=== PATIENT | male | born 1945 ===

== ENCOUNTER → 2018-09-15 | Outpatient (CLI) | payer MEDICARE, OTHER | LOC: LABPAT 09:33 | PROVIDERS: ATTEND Orthopaedic Surgery | DX: Z01.812 Encounter for preprocedural laboratory examination (principal); M16.11 Unilateral primary osteoarthritis, right hip | CPT/HCPCS: 87070 ==

== ENCOUNTER 2018-09-27 05:29 | Inpatient (IN) | payer MEDICARE, OTHER ==
--- NOTE | 2018-09-26 17:43 | HP ---
HISTORY AND PHYSICAL REASON FOR ADMISSION: Surgery scheduled for 09/27/2018 HISTORY OF PRESENT ILLNESS: Frances Easley is a 72-year-old patient seen with symptomatic right hip osteoarthritis. We discussed treatment options. She elected to proceed with right total hip arthroplasty. Consent was obtained. Preoperative medical clearance was provided by Dr. Alex Gallardo. PAST MEDICAL HISTORY: Hypothyroidism. PAST SURGICAL HISTORY: Cholecystectomy, hysterectomy, total knee arthroplasty. MEDICATIONS: Levothyroxine. ALLERGIES: None reported. SOCIAL HISTORY: She denies current tobacco use. PHYSICAL EXAMINATION: Evaluation of the right hip: There is very limited range of motion with severe pain. Positive hip impingement sign. Straight leg raise negative. Distal neurovascular exam is intact. RADIOGRAPHS: Radiographs of the right hip revealed moderate to severe osteoarthritic changes. IMPRESSION: 1. Right hip osteoarthritis. 2. Hypothyroidism. PLAN: Direct anterior right total hip arthroplasty. Surgery scheduled for 09/27/2018. MMODL / IJN: [id number] /
[~2018-09-27 05:29] MED LIST: ACETAMINOPHEN TAB 500 MG TAB PO ONE; MELOXICAM 7.5 MG TAB PO ONE; TRANEXAMIC ACID 1,000 MG in SODIUM CHLORIDE 0.9% 50 ML IVPB ONE; ceFAZolin IN SWFI 2 GM/20 ML SYRINGE IVP ONE
[2018-09-27] MEDS ORDERED: DEXAMETHASONE SOD PHOSPHATE 10 MG/ML 1 ML VIAL IV ONE (05:47)
[2018-09-27] MEDS ORDERED: MIDAZOLAM (PF) 2 MG/2 ML VIAL IV PRN (05:47)
[2018-09-27] MEDS ORDERED: LACTATED RINGERS 1,000 ML IV SCH (05:47)
[2018-09-27] MEDS ORDERED: LIDOCAINE 1% 20 ML VIAL (10MG/ML) FOR IV START INTRADERMA PRN (05:47)
[2018-09-27] MEDS ORDERED: ONDANSETRON 4 MG/2 ML VIAL IVP ONE (05:47)
[2018-09-27] MEDS ORDERED: HYDROmorphone 0.5 MG/0.5 ML SYRINGE IVP PRN ×4 (05:47→10:15)
[2018-09-27] MEDS ORDERED: SCOPOLAMINE 1.5MG/72HR PATCH TRANSDERM ONE (05:47)
[2018-09-27] MEDS ORDERED: WATER FOR INJECTION, STERILE 10 ML VIAL IV ONE (07:20)
[2018-09-27] MEDS ORDERED: TRANEXAMIC ACID 1,000 MG/10 ML VIAL ONE (07:20)
[2018-09-27] MEDS ORDERED: SODIUM CHLORIDE 0.9% 100 ML BAG ONE (07:20)
[2018-09-27] MEDS ORDERED: PROPOFOL 10 MG/ML 20 ML VIAL IV ONE (07:20)
[2018-09-27] MEDS ORDERED: MIDAZOLAM 2 MG/2 ML VIAL ONE (07:20)
[2018-09-27] MEDS ORDERED: ePHEDrine SULFATE/0.9% NACL/PF 50 MG/5 ML SYRINGE IV ONE (07:20)
[2018-09-27] MEDS ORDERED: ceFAZolin 3,000 MG in SODIUM CHLORIDE 0.9% IRRIGATIO 3,000 ML IRRIGATION ONE (07:23)
[2018-09-27] MEDS ORDERED: ROPIVACAINE 246.25 MG, EPINEPHrine 0.5 MG, KETOROLAC 30 MG, cloNIDine HCL/PF 80 MCG, WA... MISCELLANE ONE ×5 (07:59)
--- NOTE | 2018-09-27 09:27 | FL ---
EXAMINATION TYPE: FL guidance operating room, XR Hip Limited RT DATE OF EXAM: 09/27/2018 COMPARISON: NONE HISTORY: 72 year-old female right hip replacement FINDINGS: Intraoperative fluoroscopy during right hip total arthroplasty. FLUOROSCOPY Fluoroscopy time of 20 seconds was used during right hip arthroplasty. 1 image/s document/s the proc edure. IMPRESSION: Intraoperative fluoroscopy as above.
--- NOTE | 2018-09-27 09:29 | P.OP ---
Date of Procedure: 09/27/18 Preoperative Diagnosis: Right hip osteoarthritis Postoperative Diagnosis: Right hip osteoarthritis Procedure(s) Performed: Direct anterior right total hip arthroplasty Implants: 1. Depuy Corail KA size 11 standard collar press femoral stem 2. Depuy pinnacle 54 mm press-fit acetabular shell 3. Depuy pinnacle polyethylene acetabular liner neutral 36 mm ID 54 mm OD 4. Biolox delta ceramic femoral head +1.5 36 mm Anesthesia: local, spinal Surgeon: Brown Martins Sales Analyst #1: Nick Lloyd Estimated Blood Loss (ml): 125 Pathology: other (Femoral head) Condition: stable Disposition: PACU Indications for Procedure: 72-year-old patient seen with progressive symptomatic right hip osteoarthritis. After treatment options were discussed, she elected to proceed with direct anterior total hip arthroplasty Operative Findings: see description of procedure Description of Procedure: The patient was taken to the operative suite. Patient underwent a spinal anesthetic by the department of anesthesia. Patient was then transferred to the [place] table. Patient was given preoperative IV antibiotics and TXA. Both lower extremities were placed in standard leg spars. The hip was then prepped and draped in the normal sterile orthopedic fashion. A standard anterior incision was made beginning 3 cm lateral and 1 cm distal to the ASIS extending 10 cm. Dissection was then carried down through the subcutaneous soft tissues down to the fascia overlying the tensor fascia lauren. An incision was now made through the fascia. Careful dissection was taken down exposing the tensor fascia lauren muscle. A Cobra retractor was now placed along the medial femoral neck and a second one along the lateral femoral neck. The venous circumflex vessels were now identified, cauterized and clipped. We identified the anterior hip capsule. An incision was made through the hip capsule along the lateral border. I performed a partial anterior capsulectomy. Retractors were now placed around the femoral neck itself. A femoral neck cut was now made with a sagittal saw. It was completed with an osteotome at the lateral neck area. The femoral head was now removed without difficulty. The extremity was now rotated to 45 of external rotation. It was locked in position. Residual labrum was now debrided out. Serial reaming was performed of the acetabulum while Marvin CORTES assisted holding an anterior retractor for exposure. Once we reached the appropriate size and a trial was position and fit nicely. The appropriate size was now chosen opened and made available. It was introduced into the acetabulum without difficulty. The C-arm/fluoroscopy was now brought into the operative field. We made sure we had a true AP pelvic view. We now under direct C-arm/fluoroscopy introduced into the acetabular component with appropriate version and inclination. I held the cup in appropriate position well Marvin CORTES used a mallet to seat the acetabular component. I noted the component to be well seated however didn't appear to be well fixated. After a few attempts I decided to proceed with screw fixation. We we achieved 4 good purchase screw fixation for the acetabular cup. The C-arm was pulled back. An appropriate liner was introduced and clicked into position. It was felt to be stable. At this point retractors were removed. The extremity was now placed into 120 external rotation with no traction. The leg was now dropped to the ground and adducted. Appropriate retractors were now positioned along the proximal femur. We also placed our femoral look into position. Additional capsular releasing was performed to gain access to the proximal femur. We now used a box osteotome. A canal finder was now utilized. Serial broaching was now performed with the assistance of Marvin CORTES tapping the broaches down with a mallet while held the broach in appropriate rotation and position. This was done until we reached the appropriate size with good overall rotational stability. Appropriate calcar planing was performed. A trial head/neck was placed into position. The hip was now reduced. The C-arm/ fluoroscopy was brought back into the operative field. A spot film was obtained of the nonoperative hip. A spot film was obtained of the trial components. Overlays were performed, we noted good overall alignment and positioning for determining leg length. The C-arm/fluoroscopy was pulled back. Retractors were repositioned and the hip was dislocated. The leg was again taken down to the ground and adducted. Appropriate retractors were repositioned as well as the femoral hook. All trial components were removed. The femoral implant was opened along with the femoral head. The femoral implant was introduced on the appropriate handle into our pre-broached area. I held the component position well Marvin CORTES used a mallet to seat the femoral component. The femoral component was now noted to be well seated and stable.. The femoral head was introduced with good positioning and fixation noted. Retractors were now removed. The hip was now reduced. There appeared be good positioning of the hip confirmed on intraoperative fluoroscopy. Spot films were obtained to document this. A second gram of TXA was given. The deep and superficial soft tissues were infiltrated with local analgesic. Bipolar cautery had been utilized intermittently through the procedure for hemostasis. The wound was irrigated copiously with pulse lavage mechanical irrigation. The fascia was repaired with Vicryl suture. The subcutaneous soft tissues were repaired in layers with Vicryl suture. The skin was approximated with pernio/Dermabond. Sterile dressings were applied. Patient was then awakened, transferred to a bed and taken to recovery in stable condition. Marvin CORTES assisted with the complex procedure.
[2018-09-27] MEDS ORDERED: LACTATED RINGERS 1,000 ML IV ONE ×2 (09:55)
[2018-09-27] MEDS ORDERED: HYDROcodone/APAP 7.5-325MG 1 EACH TAB PO PRN (10:15)
[2018-09-27] MEDS ORDERED: ONDANSETRON 4 MG/2 ML VIAL IVP PRN (10:15)
[2018-09-27] MEDS ORDERED: NALOXONE 0.4 MG/ML 1 ML VIAL IV PRN (10:15)
[2018-09-27] MEDS ORDERED: traMADol 50 MG TAB PO PRN (10:15)
[2018-09-27 11:22] VITALS: BMI 32.6
[2018-09-27] MEDS: HYDROcodone/APAP 7.5-325MG 1 EACH TAB PO PRN ×2 (13:06→19:43)
[2018-09-27] MEDS: LACTATED RINGERS 1,000 ML IV SCH (13:36)
--- NOTE | 2018-09-27 15:21 | P.CONS ---
History of Present Illness - Reason for Consult Consult date: 09/27/18 medical management Requesting physician: Brown Martins - Chief Complaint hip pain - History of Present Illness 72-year-old female with PMH of hypothyroidism presents to [facility] for elective total right hip replacement. Patient reports that the surgery well without complications. Patient was seen and examined this morning. No acute events overnight. Patient denies any hip pain at this time. She has no complaints at this time. She denies any chest pain, shortness of breath or palpitations. No nausea, vomiting, fever, cough, changes in urination or bowel habits. Patient's past medical history of hypothyroidism, takes Synthroid 112 g daily. Review of Systems All systems: negative Past Medical History Past Medical History: Osteoarthritis (OA), Pneumonia, Skin Disorder, Thyroid Disorder Additional Past Medical History / Comment(s): Hx Pneumonia as a child, recurrent skin rash, resolved at present. History of Any Multi-Drug Resistant Organisms: None Reported Past Surgical History: Adenoidectomy, Cholecystectomy, Hysterectomy, Joint Replacement, Tonsillectomy Additional Past Surgical History / Comment(s): Thyroidectomy, bilateral knee replacements. Additional Past Anesthesia/Blood Transfusion Reaction / Comm: "Long time to get legs moving after spinal many yrs ago." Past Psychological History: No Psychological Hx Reported Smoking Status: Former smoker Past Alcohol Use History: Occasional Additional Past Alcohol Use History / Comment(s): Quit smoking in 1983, smoked for 18 yrs, 2-3 PPD. Past Drug Use History: None Reported - Past Family History Daughter(s) Family Medical History: Cancer Additional Family Medical History / Comment(s): Thyroid cancer. Medications and Allergies Home Medications Medication Instructions Recorded Confirmed Type Ergocalciferol (Vitamin D2) 50,000 unit PO TH 09/19/18 09/27/18 History [Vitamin D2] Levothyroxine Sodium 112 mcg PO HS 09/19/18 09/27/18 History Naproxen 500 mg PO BID PRN 09/27/18 09/27/18 History Allergies Allergy/AdvReac Type Severity Reaction Status Date / Time No Known Allergies Allergy Verified 09/27/18 10:24 Physical Exam Vitals: Vital Signs Temp Pulse Resp BP Pulse Ox 09/27/18 14:00 16 09/27/18 10:25 80 16 103/52 96 09/27/18 10:10 75 16 120/60 96 09/27/18 09:55 80 16 106/60 96 09/27/18 09:40 97.2 F L 90 16 105/57 95 09/27/18 06:20 98.8 F 88 16 126/69 98 Intake and Output 09/27/18 09/27/18 09/27/18 06:59 14:59 22:59 Intake Total 200 876 Output Total 125 Balance 200 751 Intake: IV 200 876 Output: Estimated Blood Loss 125 Other: Voiding Method Toilet Weight 81 kg General: [non toxic], [no distress], [appears at stated age] Derm: [warm], [dry] Head: [atraumatic], [normocephalic], [symmetric] Eyes: [EOMI], [no lid lag], [anicteric sclera] Mouth: [no lip lesion], [mucus membranes moist] Cardiovascular: [S1S2 reg], [no murmur], [positive posterior tibial pulse bilateral], Lungs: [CTA bilateral], [no rhonchi, no rales] , [no accessory muscle use] Abdominal: [soft], [ nontender to palpation], [no guarding], [no appreciable organomegaly] Ext: [no gross muscle atrophy], [no edema], [no contractures], [surgical scar bilateral knees] Neuro: [no focal neuro deficits] Psych: [Alert], [oriented], [appropriate affect] Assessment and Plan Assessment: Assessment and Plan 1. Right ankle hip osteoarthritis status post total hip replacement 2. Hypothyroidism 1. Postop day 0 today. Pain management with [place] 7.5 one tab by mouth every 6 hours as needed for pain, Dilaudid IV as needed for severe pain. Weightbearing as per Ortho recommendations. Will follow PT and OT recommendations. 2. Stable. Resume Synthroid 112 mcg by mouth daily. Thank you for allowing us to participate in the care of this patient. Please feel free to call with additional questions. We'll continue to follow.
[2018-09-27] MEDS: ceFAZolin IN SWFI 2 GM/20 ML SYRINGE IVP SCH (16:49)
[2018-09-27] MEDS: SENNOSIDES-DOCUSATE SODIUM 1 EACH TAB PO SCH (21:53)
[2018-09-27] MEDS: LEVOTHYROXINE 112 MCG TAB PO SCH (21:53)
[2018-09-28] MEDS: ceFAZolin IN SWFI 2 GM/20 ML SYRINGE IVP SCH (00:15)
[2018-09-28] MEDS: LACTATED RINGERS 1,000 ML IV SCH ×2 (00:16→22:13)
[2018-09-28] MEDS: HYDROcodone/APAP 7.5-325MG 1 EACH TAB PO PRN ×4 (01:53→20:30)
[2018-09-28 07:32] LABS: Basophils % (A) 0 %; Eosinophils # (A) 0.1 k/uL (0-0.7); Eosinophils % (A) 1 %; HCT 32.4 % (34.0-46.0); HGB 10.4 gm/dL (11.4-16.0); Lymphocytes # (A) 1.5 k/uL (1.0-4.8); Lymphocytes % (A) 18 %; MCH 28.9 pg (25.0-35.0); MCHC 32.2 g/dL (31.0-37.0); MCV 89.7 fL (80.0-100.0); Mean Platelet Volume 6.6; Monocytes # (A) 0.5 k/uL (0-1.0); Monocytes % (A) 6 %; Neutrophils % (A) 74 %; Platelet Count 201 k/uL (150-450); RBC 3.61 m/uL (3.80-5.40); RDW 13.4 % (11.5-15.5); WBC 8.1 k/uL (3.8-10.6)
[2018-09-28] MEDS: FAMOTIDINE 20 MG TAB PO SCH (08:10)
[2018-09-28] MEDS: ENOXAPARIN 40 MG/0.4 ML SYRINGE SQ SCH (08:10)
[2018-09-28] MEDS ORDERED: HYDROmorphone 2 MG TAB PO PRN ×3 (11:31→11:32)
--- NOTE | 2018-09-28 12:33 | P.PN ---
Progress Note - Text Progress Note Date: 09/28/18 Patient seen laying in bed comfortably. She did ambulate with walker today but did have a difficult time with that. Physical therapy has recommended inpatient rehabilitation for this patient. Incision stable. Log[place] hip is without pain. Negative Pedro, negative Carlos. Impression: Status post direct anterior right total hip arthroplasty Plan: Physical therapy DVT prophylaxis Medical management Await rehab transfer
--- NOTE | 2018-09-28 16:21 | P.PN ---
Subjective Progress Note Date: 09/28/18 Principal diagnosis: Right hip arthroplasty Patient was seen and examined. No acute events overnight. Patient reports good control of her pain with [place], 7 out of 10 with ambulation. Patient complains of numbness along the lateral aspect of her right lower extremity. She also complains of stiffness in the right lower extremity, but this is being continued previous to her surgery. She was watched ambulating with physical therapy with the help of a rolling walker. Plans for [facility] on Monday or Monday. Objective - Vital Signs Vital signs: Vital Signs Temp 97.4 F L 09/28/18 15:39 Pulse 83 09/28/18 15:39 Resp 16 09/28/18 15:39 BP 104/67 09/28/18 15:39 Pulse Ox 94 L 09/28/18 15:39 Intake & Output 09/27/18 09/28/18 09/28/18 18:59 06:59 18:59 Intake Total 876 980 560 Output Total 125 Balance 751 980 560 Weight 81 kg Intake: IV 876 Intake, IV Titration 800 560 Amount Lactated Ringers 1,000 ml 800 560 @ 80 mls/hr IV .[id number] [facility] Rx#:[id number] Oral 180 Output: Estimated Blood Loss 125 Other: Voiding Method Toilet Toilet Toilet # Voids 2 - Exam General: [non toxic], [no distress], [appears at stated age] Derm: [warm], [dry] Head: [atraumatic], [normocephalic], [symmetric] Eyes: [EOMI], [no lid lag], [anicteric sclera] Mouth: [no lip lesion], [mucus membranes moist] Cardiovascular: [S1S2 reg], [no murmur], [positive DP pulse bilateral] Lungs: [CTA bilateral], [no rhonchi, no rales] , [no accessory muscle use] Abdominal: [soft], [ nontender to palpation], [no guarding], [no appreciable organomegaly] Ext: [no gross muscle atrophy], [no edema], [no contractures], [surgical scar bilateral knees], [right hip dressing is clean dry and intact], [decreased sensation to touch over the lateral aspect of the right thigh] Neuro: [no focal neuro deficits] Psych: [Alert], [oriented], [appropriate affect] - Labs CBC & Chem 7: 09/28/18 06:33 Labs: Abnormal Lab Results - Last 24 Hours (Table) 09/28/18 Range/Units 06:33 RBC 3.61 L (3.80-5.40) m/uL Hgb 10.4 L (11.4-16.0) gm/dL Hct 32.4 L (34.0-46.0) % Assessment and Plan Assessment: Assessment and Plan 1. Right ankle hip osteoarthritis status post total hip replacement 2. Hypothyroidism 1. Postop day 1 today. Pain management with [place] 7.5 one tab by mouth every 6 hours as needed for pain, Dilaudid IV as needed for severe pain. Weightbearing as per Ortho recommendations. Will follow PT and OT recommendations. Will talk to orthopedic surgery regarding her lateral thigh numbness and stiffness in her right lower extremity. 2. Stable. Resume Synthroid 112 mcg by mouth daily. Thank you for allowing us to participate in the care of this patient. Please feel free to call with additional questions. We'll continue to follow.
[2018-09-28] MEDS: SENNOSIDES-DOCUSATE SODIUM 1 EACH TAB PO SCH (20:30)
[2018-09-28] MEDS: LEVOTHYROXINE 112 MCG TAB PO SCH (21:22)
[2018-09-29] MEDS: LACTATED RINGERS 1,000 ML IV SCH ×2 (00:56→13:46)
[2018-09-29] MEDS: HYDROcodone/APAP 7.5-325MG 1 EACH TAB PO PRN ×3 (02:25→17:59)
[2018-09-29] MEDS: ENOXAPARIN 40 MG/0.4 ML SYRINGE SQ SCH (07:12)
[2018-09-29] MEDS: FAMOTIDINE 20 MG TAB PO SCH (07:12)
[2018-09-29 07:20] VITALS: RESP 16
--- NOTE | 2018-09-29 09:58 | P.PN ---
Subjective Progress Note Date: 09/29/18 Principal diagnosis: Status post right total hip arthroplasty Patient evaluated today bedside, she is resting comfortably. She notes having is in the leg. Pain controlled. She denies any chest pain or shortness of breath. Objective - Vital Signs Vital signs: Vital Signs Temp 98.0 F 09/29/18 07:19 Pulse 89 09/29/18 07:19 Resp 16 09/29/18 07:19 BP 94/59 09/29/18 07:19 Pulse Ox 96 09/29/18 07:19 Intake & Output 09/28/18 09/29/18 09/29/18 18:59 06:59 18:59 Intake Total 560 Balance 560 Intake: Intake, IV Titration 560 Amount Lactated Ringers 1,000 ml 560 @ 80 mls/hr IV .[id number] [facility] Rx#:[id number] Other: Voiding Method Toilet Toilet - Exam Right lower extremity: Incision is clean, dry, and intact. The ananda is in good condition. There is minimal soft tissue swelling and ecchymosis surrounding the medial and lateral aspects of the incision. Calf is soft, no tenderness with palpation. Plantar flexion, dorsiflexion, EHL, FHL are intact. Sensory exam to light touch throughout the extremity is intact, dorsal pedis pulses 2+. - Labs CBC & Chem 7: 09/28/18 06:33 Assessment and Plan Plan: Assessment: Postop day #2 status post right total hip arthroplasty Plan: Pain control, continue current medication GI and DVT prophylaxis, continue current medication Wound care Instructions discussed Medical recommendations Discharge planning: Patient will be discharged to rehab tomorrow
--- NOTE | 2018-09-29 11:50 | P.PN ---
Subjective Progress Note Date: 09/29/18 Principal diagnosis: Right hip pain Patient was seen and examined. No acute events overnight. Patient reports controlled pain in her right hip. She continues to complain of numbness on the lateral aspect of her right thigh. She denies any chest pain, shortness of breath or palpitations. Objective - Vital Signs Vital signs: Vital Signs Temp 98.0 F 09/29/18 07:19 Pulse 89 09/29/18 07:19 Resp 16 09/29/18 07:19 BP 94/59 09/29/18 07:19 Pulse Ox 96 09/29/18 07:19 Intake & Output 09/28/18 09/29/18 09/29/18 18:59 06:59 18:59 Intake Total 560 Balance 560 Intake: Intake, IV Titration 560 Amount Lactated Ringers 1,000 ml 560 @ 80 mls/hr IV .[id number] [facility] Rx#:[id number] Other: Voiding Method Toilet Toilet - Exam General: [non toxic], [no distress], [appears at stated age] Derm: [warm], [dry] Head: [atraumatic], [normocephalic], [symmetric] Eyes: [EOMI], [no lid lag], [anicteric sclera] Mouth: [no lip lesion], [mucus membranes moist] Cardiovascular: [S1S2 reg], [no murmur], [positive DP pulse bilateral] Lungs: [CTA bilateral], [no rhonchi, no rales] , [no accessory muscle use] Abdominal: [soft], [ nontender to palpation], [no guarding], [no appreciable organomegaly] Ext: [no gross muscle atrophy], [no edema], [no contractures], [surgical scar bilateral knees], [right hip dressing is clean dry and intact], [decreased sensation to touch over the lateral aspect of the right thigh] Neuro: [no focal neuro deficits] Psych: [Alert], [oriented], [appropriate affect] - Labs CBC & Chem 7: 09/28/18 06:33 Assessment and Plan Assessment: Assessment and Plan 1. Right ankle hip osteoarthritis status post total hip replacement 2. Hypothyroidism 1. Postop day 2 today. Pain management with [place] 7.5 one tab by mouth every 6 hours as needed for pain, Dilaudid IV as needed for severe pain. Weightbearing as per Ortho recommendations. Will follow PT and OT recommendations. Lateral thigh numbness could be due to lateral cutaneous nerve injury or compression from swelling. Possible discharge to rehab on Monday. Will follow hemoglobin for tomorrow morning. 2. Stable. Resume Synthroid 112 mcg by mouth daily. Thank you for allowing us to participate in the care of this patient. Please feel free to call with additional questions. We'll continue to follow.
[2018-09-29] MEDS: SENNOSIDES-DOCUSATE SODIUM 1 EACH TAB PO SCH (20:10)
[2018-09-29] MEDS: LEVOTHYROXINE 112 MCG TAB PO SCH (20:11)
[2018-09-30] MEDS: HYDROcodone/APAP 7.5-325MG 1 EACH TAB PO PRN ×2 (06:30→14:38)
[2018-09-30] MEDS: LACTATED RINGERS 1,000 ML IV SCH ×2 (07:09→14:53)
[2018-09-30] MEDS: ENOXAPARIN 40 MG/0.4 ML SYRINGE SQ SCH (07:15)
[2018-09-30] MEDS: FAMOTIDINE 20 MG TAB PO SCH (07:15)
[2018-09-30 07:19] VITALS: BP 102/60; PULSE 78; TEMP 97.9
[2018-09-30 08:30] LABS: Basophils % (A) 0 %; Eosinophils # (A) 0.1 k/uL (0-0.7); Eosinophils % (A) 2 %; HCT 32.1 % (34.0-46.0); HGB 10.3 gm/dL (11.4-16.0); Lymphocytes # (A) 1.3 k/uL (1.0-4.8); Lymphocytes % (A) 18 %; MCH 28.7 pg (25.0-35.0); MCHC 32.1 g/dL (31.0-37.0); MCV 89.5 fL (80.0-100.0); Mean Platelet Volume 6.7; Monocytes # (A) 0.4 k/uL (0-1.0); Monocytes % (A) 5 %; Neutrophils # (A) 5.4 k/uL (1.3-7.7); Neutrophils % (A) 73 %; Platelet Count 216 k/uL (150-450); RBC 3.58 m/uL (3.80-5.40); RDW 13.3 % (11.5-15.5); WBC 7.3 k/uL (3.8-10.6)
--- NOTE | 2018-09-30 11:26 | P.PN ---
Subjective Progress Note Date: 09/30/18 Principal diagnosis: Status post right total hip arthroplasty Patient evaluated today bedside, she is resting comfortably. Pain controlled. She denies any chest pain or shortness of breath. Objective - Vital Signs Vital signs: Vital Signs Temp 97.9 F 09/30/18 07:18 Pulse 78 09/30/18 07:18 Resp 16 09/30/18 07:18 BP 102/60 09/30/18 07:18 Pulse Ox 94 L 09/30/18 07:18 Intake & Output 09/29/18 09/30/18 09/30/18 18:59 06:59 18:59 Intake Total 200 680 200 Balance 200 680 200 Intake: Oral 680 200 Other 200 Other: # Voids 3 1 - Exam Right lower extremity: Incision is clean, dry, and intact. The ananda is in good condition. There is minimal soft tissue swelling and ecchymosis surrounding the medial and lateral aspects of the incision. Calf is soft, no tenderness with palpation. Plantar flexion, dorsiflexion, EHL, FHL are intact. Sensory exam to light touch throughout the extremity is intact, dorsal pedis pulses 2+. - Labs CBC & Chem 7: 09/30/18 07:42 Labs: Abnormal Lab Results - Last 24 Hours (Table) 09/30/18 Range/Units 07:42 RBC 3.58 L (3.80-5.40) m/uL Hgb 10.3 L (11.4-16.0) gm/dL Hct 32.1 L (34.0-46.0) % Assessment and Plan Plan: Assessment: Postop day #3 status post right total hip arthroplasty Plan: Pain control, plan for discharge on [place] 7.5 mg/325 mg GI and DVT prophylaxis, discharged on aspirin 81 mg twice a day Wound care Instructions discussed Medical recommendations Discharge planning: Patient will be discharged to rehab today Time with Patient: Less than 30
--- NOTE | 2018-09-30 11:31 | P.DS ---
Providers Date of admission: 09/27/18 05:29 Expected date of discharge: 09/30/18 Attending physician: Brown Martins Consults: 09/27/18 10:15 Consult Physician Routine Consulting Provider: Samreen Bowen Consult Reason/Comments: Medical management Do you want consulting provider notified?: Yes Primary care physician: Physician Nonstaff Hospital Course: Date of admission: 09/27/2018 Date of discharge: 09/30/2018 Admission diagnosis: Status post direct anterior right total hip arthroplasty Discharge diagnosis: Same Attending physician: Dr. Martins Surgical procedures: Direct anterior right total hip arthroplasty Brief history: Patient is a 72-year-old female with a history of progressive primary right hip osteoarthritis. At this point patient has failed conservative treatment measures and has opted to proceed with a elective right total hip arthroplasty. Hospital course: Details of patient's surgery can be found in operative report. Patient tolerated the procedure well and was subsequently transported to orthopedic floor. Patient's orthopeidc and medical care was provided daily. Patient had daily laboratory tests performed for evaluation of overall blood counts. Patient had daily physical therapy to include strengthening range of motion as well as education with walker ambulation. Patient was treated with Lovenox for their postoperative DVT prophylaxis during their inpatient stay. Patient was noted to have a relatively uneventful postoperative course. Patient reported satisfactory pain control with oral pain medications by postoperative day 0. Patient showed satisfactory progress with physical therapy. Patient moved steadily through the program and had no difficulty meeting the goals by postoperative day 3. Given patient's otherwise satisfactory course and having met physical therapy goals, plan is to discharge patient rehab on postoperative day 3. Discharge condition/disposition: Patient will be discharged rehab in stable condition. Discharge medications: Instructions are given on resumption of patient's normal daily medications per primary care recommendation, in addition patient will be prescribed [place] 7.5 mg/325 mg, Colace 100 mg, aspirin 81 mg. Discharge instructions: 1. Wound care and infection precautions, keep incision dry and covered while showering, no lotions, creams, moisturizers. No soaking, tubs, pools, hottubs. Do not scrub over the incision. 2. Weight-bear as tolerated with walker / cane until follow-up. 3. Ice and elevate when necessary. Do not exceed 20 minutes per hour with ice pack. 4. Utilize compression sleeve until seen at first follow up appointment. 5. Visiting nursing care. 6. Home physical therapy. 7. Pain meds and anticoagulants per prescription. 8. Pain medication has potential to cause constipation. Increase oral fluid and fiber intake. Contact primary care provider if you have not had a bowel movement within 48 hours after discharge 9. No anti-inflammatory medication until discussed at first post operative visit, this including Motrin, Aleve, Mobic, Diclofenac. 10. Follow up in office at 2 weeks postop with Marvin Lloyd PA-C 11. Follow up with your primary care doctor 7-10 days after discharge. 12. Contact [facility] with any questions, . Procedures: Direct anterior right total hip arthroplasty Patient Condition at Discharge: Good Plan - Discharge Summary Discharge Rx Participant: Yes New Discharge Prescriptions: New Aspirin [Adult Low Dose Aspirin EC] 81 mg PO BID #60 tablet. Doc[place] [Colace] 100 mg PO DAILY #30 capsule HYDROcodone/APAP 7.5-325MG [[place] 7.5] 1 - 2 each PO Q6HR PRN #56 tab PRN Reason: Pain No Action Levothyroxine Sodium 112 mcg PO HS Ergocalciferol (Vitamin D2) [Vitamin D2] 50,000 unit PO TH Naproxen 500 mg PO BID PRN PRN Reason: Pain Discharge Medication List Ergocalciferol (Vitamin D2) [Vitamin D2] 50,000 unit PO TH 09/19/18 [History] Levothyroxine Sodium 112 mcg PO HS 09/19/18 [History] Naproxen 500 mg PO BID PRN 09/27/18 [History] Aspirin [Adult Low Dose Aspirin EC] 81 mg PO BID #60 tablet. 09/30/18 [Rx] Docusate [Colace] 100 mg PO DAILY #30 capsule 09/30/18 [Rx] HYDROcodone/APAP 7.5-325MG [[place] 7.5] 1 - 2 each PO Q6HR PRN #56 tab 09/30/18 [ Rx] Follow up Appointment(s)/Referral(s): [facility], [NON-STAFF] - As Needed Nick Lloyd, PAC [PHYSICIAN [employer]] - 2 Weeks Activity/Diet/Wound Care/[facility] Instructions: 1. Wound care and infection precautions, keep incision dry and covered while showering. 2. Weight-bear as tolerated with walker / cane until follow-up. 3. Ice and elevate when necessary. Do not exceed 20 minutes per hour with ice pack. 4. Utilize compression sleeve until seen at first follow up appointment. 5. Pain meds and anticoagulants per prescription. 6. Pain medication has potential to cause constipation. Increase oral fluid and fiber intake. Contact primary care provider if you have not had a bowel movement within 48 hours after discharge. 7. No anti-inflammatory medication until discussed at first post operative visit, this including Motrin, Aleve, Mobic, Diclofenac. 8. Follow up in office at 2 weeks postop with Marvin Lloyd PA-C 9. Follow up with your primary care doctor 7-10 days after discharge. 10. Contact [facility] with any questions, . Wound instructions: 1. Current bandage can last until 10/03/2018 2. If bandage becomes saturated, please remove 3. Utilize basic dry dressing, to include nonadherent pad 4. Please utilize triple antibiotic ointment over irritated areas of skin medial and lateral to incision 5. Please change bandage twice a day after silver dressing is removed Discharge Disposition: TRANSFER TO SNF/ECF
== END 2018-09-30 15:58 | DRG 470 ==
LOC: 2ORMAIN 05:29 → 4SSUR 09:42 → EDSEX 12:35
PROVIDERS: ADMIT Orthopaedic Surgery; ATTEND Orthopaedic Surgery
PROC: 0SR904A Replacement of Right Hip Joint with Ceramic on Polyethylene Synthetic Substitute, Uncemented, Open Approach (ICD-10-PCS; principal; 2018-09-27 07:30)
DX: M16.11 Unilateral primary osteoarthritis, right hip (principal); E89.0 Postprocedural hypothyroidism; Z80.8 Family history of malignant neoplasm of other organs or systems; Z87.01 Personal history of pneumonia (recurrent); Z87.891 Personal history of nicotine dependence; Z90.710 Acquired absence of both cervix and uterus; Z96.653 Presence of artificial knee joint, bilateral; Z90.49 Acquired absence of other specified parts of digestive tract; Z79.890 Hormone replacement therapy; Z79.1 Long term (current) use of non-steroidal anti-inflammatories (NSAID)
CPT/HCPCS: 73501; 85025; 86850; 86900; 86901; 88300; 94760